=== PATIENT | female | born 1970 | race Hispanic/Latino ===

== ENCOUNTER 2017-06-13 08:06 | Emergency (ER) | payer OTHER ==
[2017-06-13 08:18] VITALS: BP 106/74; PULSE 69; RESP 18; TEMP 97.9; O2SAT 97
[2017-06-13] MEDS ORDERED: Promethazine/Cod 6.25mg-10mg/5ml Syr UD PO STA (08:30)
--- NOTE | 2017-06-13 08:34 | C.PDOC ---
History Of Present Illness Patient is a 47 y/o F presenting with 1 week history of worsening cough. She reports productive cough with brown and yellow sputum. She reports that she is coughing so much that she cannot sleep. She reports generalized myalgias. Reports alternating nasal congestion and rhinorrhea. Denies fever. Reports taking robitussin without relief. Admits to tobacco use. Time Seen by Provider: 06/13/17 08:19 Chief Complaint (Nursing): Cough, Cold, Congestion Past Medical History Vital Signs: Last Vital Signs Temp 97.9 F 06/13/17 08:14 Pulse 69 06/13/17 08:14 Resp 18 06/13/17 08:14 BP 106/74 06/13/17 08:14 Pulse Ox 97 06/13/17 09:30 - Medical History PMH: Anxiety, COPD, Depression Family History: States: Unknown Family Hx - Social History Hx Tobacco Use: Yes Hx Alcohol Use: No Hx Substance Use: No - Immunization History Hx Tetanus Toxoid Vaccination: No Hx Influenza Vaccination: Yes Hx Pneumococcal Vaccination: No Review Of Systems Except As Marked, All Systems Reviewed And Found Negative. Constitutional: Negative for: Fever, Weakness, Malaise ENT: Positive for: Nose Discharge, Nose Congestion. Negative for: Ear Discharge , Mouth Swelling, Throat Pain, Throat Swelling Cardiovascular: Negative for: Chest Pain, Palpitations, Orthopnea, Edema, Light Headedness Respiratory: Positive for: Cough, Sputum. Negative for: Shortness of Breath, SOB with Excertion, Wheezing Gastrointestinal: Negative for: Nausea, Vomiting, Abdominal Pain, Diarrhea, Constipation Genitourinary: Negative for: Dysuria Skin: Negative for: Rash Neurological: Negative for: Weakness, Numbness, Altered Mental Status, Headache Physical Exam - Physical Exam Appears: Well, Non-toxic, No Acute Distress Skin: Normal Color, Warm, Dry Head: Atraumatic, Normacephalic Eye(s): bilateral: Normal Inspection, PERRL, EOMI Throat: No Erythema, No Exudate Neck: Normal, Supple Chest: Symmetrical Cardiovascular: Rhythm Regular Respiratory: Normal Breath Sounds, No Rales, No Rhonchi, No Wheezing Gastrointestinal/Abdominal: Soft, No Tenderness, Mass, No Distention Back: Normal Inspection, No CVA Tenderness Extremity: Normal ROM Neurological/Psych: Oriented x3 Gait: Steady ED Course And Treatment O2 Sat by Pulse Oximetry: 97 Medical Decision Making Medical Decision Making: Patient is well appearing and afebrile. Symptoms consistent with uri. Will give cough medication and motrin and get xray to r/o pna. 9:27Am Cxray negative. Patient feels better after phenergen with codeine and motrin Disposition - Disposition Disposition: HOME/ ROUTINE Disposition Time: 09:28 Condition: GOOD Additional Instructions: Follow-up with PMD within 2 days. Return to ED with any worsening symptoms. Use tessalon perles for cough. For severe cough, use phenergen with codeine. Do not use together. Prescriptions: Benzonatate [Tessalon Perles] 100 mg PO TID #20 sgl Promethazine/Codeine [Codeine/Promethazine 10 MG/5 Ml-6.25 MG/5 Ml] 5 ml PO TID #40 ml Instructions: Upper Respiratory Infection (ED) Forms: [facility] (Northern Irish), Work Excuse - Clinical Impression Clinical Impression: Upper respiratory infection
[2017-06-13] MEDS ORDERED: Promethazine DM 6.25 mg-15 mg/5 ml Syrup ONE (08:46)
--- NOTE | 2017-06-13 10:12 | RAD ---
HISTORY: cough, uri COMPARISON: Comparison is made to 07/12/2016 TECHNIQUE: Chest PA and lateral FINDINGS: LUNGS: No active pulmonary disease. PLEURA: No significant pleural effusion identified. No pneumothorax apparent. CARDIOVASCULAR: Normal. OSSEOUS STRUCTURES: No significant abnormalities. VISUALIZED UPPER ABDOMEN: Normal. OTHER FINDINGS: None. IMPRESSION: No radiographic evidence of pneumonia
== END 2017-06-13 09:42 | disposition home or self-care (01) ==
LOC: C.ER 08:06
DX: J06.9 Acute upper respiratory infection, unspecified (principal)

== ENCOUNTER 2017-12-15 13:10 | Emergency (ER) | payer OTHER ==
[2017-12-15 13:21] VITALS: RESP 18; TEMP 97.5
[2017-12-15 14:25] LABS: BASO % 0.7 % (0.0-2.0); EOS % 0.6 % (0.0-4.0); HEMOGLOBIN 15.6 g/dL (11.0-16.0); LYMPH % 14.3 % (20.0-40.0); MEAN CELL VOLUME 96.7 fL (81.0-99.0); MEAN CORPUSCULAR HEMOGLOBIN 32.6 pg (27.0-31.0); MEAN CORPUSCULAR HGB CONC 33.8 g/dL (33.0-37.0); MEAN PLATELET VOLUME 7.1 fL (7.2-11.7); MONO # 0.3 K/uL (0.0-0.8); MONO % 4.2 % (0.0-10.0); NEUT # 5.5 K/uL (1.8-7.0); NEUT % 80.2 % (50.0-75.0); RBC 4.78 Mil/uL (3.80-5.20); RED CELL DISTRIBUTION WIDTH 13.4 % (11.5-14.5); WHITE BLOOD COUNT 6.8 K/uL (4.8-10.8)
[2017-12-15 14:41] LABS: ALB/GLOB RATIO 1.4 (1.0-2.1); ALBUMIN 4.5 g/dL (3.5-5.0); ALT/SGPT 47 U/L (9-52); AST/SGOT 50 U/L (14-36); BLOOD UREA NITROGEN 12 mg/dL (7-17); CALCIUM 8.8 mg/dl (8.6-10.4); GFR AFRICAN-AMERICAN > 60; GFR NON-AFRICAN AMERICAN > 60
--- NOTE | 2017-12-15 14:55 | RAD ---
PROCEDURE: Right shoulder dated 12/15/2017. HISTORY: Pain in shoulder region, possible trauma COMPARISON: No prior study available comparison however correlation made with radiographs left shoulder dated 02/07/2016 comparison also made with chest radiograph dated 06/13/2017 which partially image the right shoulder. FINDINGS: BONES: No evidence of acute displaced fracture nor dislocation. The osseous structures appear intact. JOINTS: Mild degenerative changes right acromioclavicular joint. . SOFT TISSUES: Normal. OTHER FINDINGS: None. IMPRESSION: No acute displaced fracture nor dislocation. 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
--- NOTE | 2017-12-15 15:16 | C.PDOC ---
History Of Present Illness Pt c/o right hand/forearm tingling that she states that she woke up with, it has gotten gradually better but still present. She also feels shaky/anxious. Time Seen by Provider: 12/15/17 13:42 Chief Complaint (Nursing): Weakness/Neurological Deficit History Per: Patient Onset/Duration Of Symptoms: Hrs (since waking up at 7am this morning) Current Symptoms Are (Timing): Better Current Symptoms: Right hand tingling. Anxiety. Fall Associated With With Symptoms: No Severity: Moderate Additional History Per: Prior Records - Symptoms Of CVA Recent Head Trauma: No Past Medical History Reviewed: Historical Data, Nursing Documentation, Vital Signs Vital Signs: Last Vital Signs Temp 97.5 F L 12/15/17 13:15 Pulse 84 12/15/17 13:15 Resp 18 12/15/17 13:15 BP 112/69 12/15/17 13:15 Pulse Ox 99 12/15/17 13:15 - Medical History PMH: Anxiety, COPD, Depression Family History: States: Unknown Family Hx - Social History Hx Tobacco Use: Yes Hx Alcohol Use: No Hx Substance Use: No - Immunization History Hx Tetanus Toxoid Vaccination: No Hx Influenza Vaccination: Yes Hx Pneumococcal Vaccination: No Review Of Systems Except As Marked, All Systems Reviewed And Found Negative. Constitutional: Negative for: Fever, Weakness Cardiovascular: Negative for: Chest Pain Respiratory: Negative for: Shortness of Breath Gastrointestinal: Negative for: Vomiting, Abdominal Pain Musculoskeletal: Positive for: Shoulder Pain (right). Negative for: Neck Pain, Back Pain Skin: Negative for: Rash Neurological: Negative for: Weakness, Seizures, Altered Mental Status, Headache Psych: Positive for: Anxiety. Negative for: Suicidal ideation Physical Exam - Physical Exam Appears: Non-toxic, No Acute Distress Skin: Normal Color, Warm, Dry, No Rash Head: Atraumatic, Normacephalic Eye(s): bilateral: PERRL, EOMI Neck: Normal ROM, No Midline Cervical Tenderness, No Step Off Deformity, Supple Cardiovascular: Rhythm Regular Respiratory: Normal Breath Sounds, No Accessory Muscle Use Gastrointestinal/Abdominal: Soft, No Tenderness Back: No CVA Tenderness Extremity: Normal ROM, Capillary Refill (wnl), No Deformity, No Swelling Extremity: Bilateral: Normal Color And Temperature Pulses: Right Radial: Normal Neurological/Psych: Oriented x3, Normal Speech, Normal Cognition, Normal Cranial Nerves, No Cerebellar Signs, Normal Motor, No Normal Sensation ( subjectively decreased sensation in right hand.) Gait: Steady ED Course And Treatment - Laboratory Results Result Diagrams: 12/15/17 14:19 12/15/17 14:19 O2 Sat by Pulse Oximetry: 99 Pulse Ox Interpretation: Normal - Other Rad Right shoulder x-rays X-Ray: Viewed By Me, Read By Radiologist Interpretation: IMPRESSION: No acute displaced fracture nor dislocation. 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 Progress Note: after 0.25mg of Xanax PO. Symptoms resolved. No numbness/ tingling. Reassessment Condition: Improved Disposition Counseled Patient/Family Regarding: Studies Performed, Diagnosis, Need For Followup, Rx Given, Smoking Cessation - Disposition Disposition: HOME/ ROUTINE Disposition Time: 15:22 Condition: IMPROVED Additional Instructions: Follow up with your doctor for further evaluation and treatment. Return to the ER if you develop weakness, worsening of symptoms or if you have any other concerns. Prescriptions: ALPRAZolam [Xanax] 0.25 mg PO BID PRN #10 tab PRN Reason: Anxiety Instructions: Paresthesias (DC) - Clinical Impression Clinical Impression: Anxiety, Paresthesias in right hand
[2017-12-15 15:20] VITALS: BP 102/68; PULSE 78
[2017-12-15 15:22] VITALS: O2SAT 99
== END 2017-12-15 15:50 | disposition home or self-care (01) ==
LOC: C.ER 13:10
DX: F41.9 Anxiety disorder, unspecified (principal); R20.2 Paresthesia of skin

== ENCOUNTER 2018-02-22 13:29 | Emergency (ER) | payer OTHER ==
[2018-02-22 13:36] VITALS: BP 127/80; PULSE 81; RESP 14; TEMP 98.4; O2SAT 98
[2018-02-22] MEDS ORDERED: Tetanus/Diphtheria Toxoids 0.5 ml Syringe IM ONE ×2 (13:48→14:28)
--- NOTE | 2018-02-22 14:34 | C.PDOC ---
History Of Present Illness 48 y/o female presents to the ED complaining of swelling to the right hand, worsening for the past 2 days. Patient states that 2 days ago she was bit on the hand by a friend's dog. Her tetanus is not up to date. She denies any fever , chills, or discharge from wound. The dog is domesticated, with up to date immunizations. Time Seen by Provider: 02/22/18 13:40 Chief Complaint (Nursing): Bite History Per: Patient History/Exam Limitations: no limitations Onset/Duration Of Symptoms: Days Current Symptoms Are (Timing): Still Present Past Medical History Reviewed: Historical Data, Nursing Documentation, Vital Signs Vital Signs: Last Vital Signs Temp 98.4 F 02/22/18 13:32 Pulse 81 02/22/18 13:32 Resp 14 02/22/18 13:32 BP 127/80 02/22/18 13:32 Pulse Ox 98 02/22/18 14:53 - Medical History PMH: Anxiety, COPD, Depression Family History: States: Unknown Family Hx - Social History Hx Tobacco Use: Yes Hx Alcohol Use: No Hx Substance Use: No - Immunization History Hx Tetanus Toxoid Vaccination: No Hx Influenza Vaccination: Yes Hx Pneumococcal Vaccination: No Review Of Systems Except As Marked, All Systems Reviewed And Found Negative. Constitutional: Negative for: Fever, Chills Musculoskeletal: Positive for: Hand Pain (and swelling) Skin: Positive for: Lesions (dog bite) Physical Exam - Physical Exam Appears: Non-toxic, No Acute Distress, Other (Afebrile) Skin: Warm, Dry, Ecchymosis (throughout entire dorsum of right hand), Other ( Crusted bite margarita noted to dorsum of right hand, with diffuse swelling, no erythema or warmth) Eye(s): bilateral: Normal Inspection, EOMI Oral Mucosa: Moist Chest: Symmetrical Respiratory: No Accessory Muscle Use, Other (speaking in full sentences) Extremity: Normal ROM (with FROM of right wrist and digits), Capillary Refill ( < 2 sec at right wrist), No Deformity Pulses: Left Radial: Normal, Right Radial: Normal Neurological/Psych: Oriented x3, Normal Speech ED Course And Treatment O2 Sat by Pulse Oximetry: 98 (RA) Pulse Ox Interpretation: Normal - Other Rad XR R Hand X-Ray: Read By Radiologist Interpretation: Accession No. : [id number]. Patient Name / ID : CASSANDRA RAE / [id number]. Exam Date : 02/22/2018 13:50:28 ( Approved ). Study Comment : Sex / Age : F / 48Y. Creator : Licha Menjivar MD. Dictator : Licha Menjivar MD. Admissions Consultant : Electronic Instrument Trades Worker : Licha Menjivar MD. Approver2 : Report Date : 02/22/2018 14:37:33. My Comment : . PROCEDURE: Right Hand Radiographs. HISTORY: dog bite. COMPARISON: None. FINDINGS: BONES: Normal. No fracture. JOINTS: Normal. No osteoarthritic changes. SOFT TISSUES: Normal. OTHER FINDINGS: None. IMPRESSION: No evidence of acute fracture or dislocation. No evidence of radiopaque foreign body. Progress Note: Patient given Tdap booster and Ancef IM in the ED. X-ray of right hand obtained, and is negative. Patient informed of x-ray result and counseled regarding treatment plan. Will d/c home on Augmentin. Patient advised to follow up with PMD within 1-2 days and return for wound check in 2-3 days. Disposition Counseled Patient/Family Regarding: Diagnosis, Need For Followup, Rx Given - Disposition Disposition: HOME/ ROUTINE Disposition Time: 14:40 Condition: STABLE Additional Instructions: Follow up with your PMD within 1-2 dys. Return to ED if feel worse. Return to ED in 2-3 days for wound check. Prescriptions: Amoxicillin/Clavulanate [Augmentin 875 MG-125 MG] 1 tab PO BID #14 tab Instructions: Animal Bites (DC) Forms: [facility] (Yemeni) - POA Present On Arrival: None - Clinical Impression Clinical Impression: Dog bite of hand - PA / RADIO TECHNICIAN / Resident Statement MD/DO has reviewed & agrees with the documentation as recorded. - Scribe Statement The provider has reviewed the documentation as recorded by the Scribe (Shila Chinchilla) All medical record entries made by the Scribe were at my direction and personally dictated by me. I have reviewed the chart and agree that the record accurately reflects my personal performance of the history, physical exam, medical decision making, and the department course for this patient. I have also personally directed, reviewed, and agree with the discharge instructions and disposition.
--- NOTE | 2018-02-22 14:39 | RAD ---
PROCEDURE: Right Hand Radiographs. HISTORY: dog bite COMPARISON: None. FINDINGS: BONES: Normal. No fracture. JOINTS: Normal. No osteoarthritic changes. SOFT TISSUES: Normal. OTHER FINDINGS: None. IMPRESSION: No evidence of acute fracture or dislocation. No evidence of radiopaque foreign body.
== END 2018-02-22 15:27 | disposition home or self-care (01) ==
LOC: C.ER 13:29
DX: S61.451A Open bite of right hand, initial encounter (principal); W54.0XXA Bitten by dog, initial encounter; Z72.0 Tobacco use; Z23 Encounter for immunization; J44.9 Chronic obstructive pulmonary disease, unspecified
CPT/HCPCS: 73130; 90471; 90714; 96372; 99283; J0690

== ENCOUNTER 2018-12-01 07:56 | Emergency (ER) | payer SELFPAY ==
[2018-12-01 07:57] VITALS: BMI 16.9
[2018-12-01 08:00] VITALS: BP 109/79; PULSE 88; RESP 20; TEMP 99.2; O2SAT 98
--- NOTE | 2018-12-01 08:16 | C.PDOC ---
History Of Present Illness 48 y/o female presents to the ER complaining of cough, nasal congestion, chills, and fatigue which have been present for the past 1 week. Patient states that she did not take any medications for the symptoms. Patient reports that she has history of smoking. She smokes 1/2 pack of cigarettes daily. Denies having fever, CP, SOB, nausea,vomiting, and abdominal pain. Time Seen by Provider: 12/01/18 08:02 Chief Complaint (Nursing): Flu-like Symptoms History Per: Patient History/Exam Limitations: no limitations Onset/Duration Of Symptoms: Days Current Symptoms Are (Timing): Still Present Severity: Moderate Past Medical History Reviewed: Historical Data, Nursing Documentation, Vital Signs Vital Signs: Last Vital Signs Temp 99.2 F 12/01/18 07:58 Pulse 88 12/01/18 07:58 Resp 20 12/01/18 07:58 BP 109/79 12/01/18 07:58 Pulse Ox 98 12/01/18 07:58 - Medical History PMH: Anxiety, Bronchitis, COPD, Depression Surgical History: No Surg Hx Family History: States: No Known Family Hx - Social History Hx Tobacco Use: Yes Hx Alcohol Use: No Hx Substance Use: No - Immunization History Hx Tetanus Toxoid Vaccination: No Hx Influenza Vaccination: No Hx Pneumococcal Vaccination: No Review Of Systems Except As Marked, All Systems Reviewed And Found Negative. Constitutional: Positive for: Chills. Negative for: Fever ENT: Positive for: Nose Congestion Cardiovascular: Negative for: Chest Pain Respiratory: Positive for: Cough. Negative for: Shortness of Breath Gastrointestinal: Negative for: Nausea, Vomiting Physical Exam - Physical Exam Appears: Other (dry cough) Skin: Normal Color, Warm, Dry Head: Atraumatic, Normacephalic Eye(s): bilateral: Normal Inspection Ear(s): Bilateral: Normal Nose: Normal Oral Mucosa: Moist Throat: Normal, No Erythema, No Exudate Neck: Supple Chest: Symmetrical Cardiovascular: Rhythm Regular Respiratory: Normal Breath Sounds, No Rales, No Rhonchi, No Wheezing Neurological/Psych: Oriented x3, Normal Speech ED Course And Treatment O2 Sat by Pulse Oximetry: 98 (RA) Pulse Ox Interpretation: Normal Medical Decision Making Medical Decision Making: Impression: Bronchitis Plan: * Zithromax PO Patient stable for discharge, lungs clear bilaterally. Rx given Disposition Counseled Patient/Family Regarding: Diagnosis, Need For Followup, Rx Given - Disposition Disposition: HOME/ ROUTINE Disposition Time: 08:40 Condition: GOOD Additional Instructions: Prescriptions sent to [facility] pharmacy Take antibiotic starting tomorrow Take cough medicine as needed every 8 hours Follow up with your doctor for further evaluation Prescriptions: Azithromycin [Zithromax] 250 mg PO DAILY #4 tab Promethazine DM [Phenergan DM Syrup] 5 ml PO Q8 PRN #300 ml PRN Reason: Cough Instructions: Acute Bronchitis, Adult (DC) Forms: [employer] (Icelandic) - Clinical Impression Clinical Impression: Bronchitis - PA / FILTER PRESS SUPERVISOR / Resident Statement MD/DO has reviewed & agrees with the documentation as recorded. - Scribe Statement The provider has reviewed the documentation as recorded by the Vianey Sullivan Provider Attestation All medical record entries made by the Miguel Ángelibonesimo were at my direction and personally dictated by me. I have reviewed the chart and agree that the record accurately reflects my personal performance of the history, physical exam, medical decision making, and the department course for this patient. I have also personally directed, reviewed, and agree with the discharge instructions and disposition.
== END 2018-12-01 08:45 | disposition home or self-care (01) ==
LOC: C.ER 07:56
DX: J40 Bronchitis, not specified as acute or chronic (principal); F17.210 Nicotine dependence, cigarettes, uncomplicated